=== PATIENT | female | born 1995 | race Hispanic/Latino ===

== ENCOUNTER 2018-05-15 09:48 | Emergency (ER) | payer OTHER ==
[~2018-05-15] VITALS: Ht 154.9 cm; Wt 61.2 kg
[2018-05-15 09:52] VITALS: BP 111/72
[2018-05-15] MEDS ORDERED: RA COUGH-COLD237 ML PO (10:28)
[2018-05-15] MEDS ORDERED: PREDNISONE20 M1 PO ×2 (10:28→11:30)
[2018-05-15] MEDS ORDERED: AMOXICILLIN500 M3 PO (10:28)
--- NOTE | 2018-05-15 10:29 | ED DYSPNEA/ASTHMA COMPLAINT ---
History of Present Illness General Chief Complaint: Wheezing/Asthma Stated Complaint: ASTHMA Source: patient, family, old records Exam Limitations: language barrier Vital Signs & Intake/Output Vital Signs & Intake/Output Vital Signs Date Time Temp Pulse Resp B/P B/P Pulse O2 O2 Flow FiO2 Mean Ox Delivery Rate 05/15 1034 98 05/15 0952 98.1 108 18 111/72 96 Room Air Room Air Allergies Coded Allergies: dicyclomine (From BENTYL) ("BECOMES DELERIOUS" 05/15/18) Reconcile Medications Guaifenesin/Dextromethorphan (Robitussin Fpjuo-Ftcki-Awzy Dm) 200 MG-10 MG CAPSULE 5-10 ML PO Q6P PRN cough Ibuprofen 600 MG TABLET 1 TAB PO Q6P PRN pain with food Prednisone 20 MG TABLET 1 TAB PO BID asthma Triage Note: TRIAGE: 22 Y/O FEMALE PRESENTS C/O ASTHMA SYMPTOMS SINCE THIS MORNING. USED INHALER WITHOUT RELIEF. SPO2 IN TRIAGE: 96%. HISTORY OF ASTHMA. ALSO USED AN OTC COUGH SYRUP. Triage Nurses Notes Reviewed? yes Onset: 2 days Duration: day(s):, continues in ED, getting worse Timing: recent history Severity: moderate Activities at Onset: rest Prior Episodes/Possible Cause: illness exposure, irritant gases exposure Modifying Factors: Improves With: rest. Worsens With: movement. Associated Symptoms: cough, wheezing, weakness LMP (ages 10-50): unknown : No Patient currently breastfeeds: No HPI: 2 days prior to admission patient complains of nasal congestion nonproductive cough progressive wheezing. She also complains of body aches sore throat loss of voice. She denies fever chills nausea vomiting diarrhea abdominal pain chest pain headache dysuria rash bleeding . Past History Travel History Traveled to [place] past 21 day No Medical History Any Pertinent Medical History? see below for history Respiratory: asthma Surgical History Surgical History: non-contributory Psychosocial History What is your primary language Irish Tobacco Use: Never used ETOH Use: denies use Illicit Drug Use: denies illicit drug use Family History Hx Contributory? No Review of Systems Review of Systems Constitutional: Reports: see HPI, malaise. EENTM: Reports: see HPI, nasal congestion, nasal pain, throat pain. Respiratory: Reports: see HPI, cough, short of breath, wheezing. Denies: sputum production. Cardiovascular: Reports: no symptoms. GI: Reports: no symptoms. Genitourinary: Reports: no symptoms. Musculoskeletal: Reports: see HPI, muscle pain. Skin: Reports: no symptoms. Neurological/Psychological: Reports: no symptoms. Hematologic/Endocrine: Reports: no symptoms. Immunologic/Allergic: Reports: no symptoms. All Other Systems: Reviewed and Negative Physical Exam Physical Exam General Appearance: well developed/nourished, alert, awake, anxious, mild distress Head: atraumatic, normal appearance, tenderness (frontal) Ears, Nose, Throat: normal pharynx, nasal congestion, pharyngeal erythema, moist mucus membranes Neck: normal inspection, supple, full range of motion, lymphadenopathy (R), lymphadenopathy (L) Respiratory: chest non-tender, no respiratory distress, decreased breath sounds, wheezing Cardiovascular: regular rate/rhythm, normal peripheral pulses, norml femoral pulses equa Peripheral Pulses: 4+ carotid (R), 4+ carotid (L) Gastrointestinal: normal bowel sounds, soft, non-tender, no organomegaly Extremities: normal inspection, normal capillary refill, normal range of motion Neurologic/Psych: no motor/sensory deficits, awake, alert, oriented x 3, normal gait, normal mood/affect, 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 No CVA/TIA Diagnosis No Sepsis Present: No Sepsis Focused Exam Completed? No Progress Differential Diagnosis: asthma, bronchitis, pneumonia Plan of Care: Current Medications Sig/Brianna Start time Last Medication Dose Stop Time Status Admin Albuterol Sulfate 3 ML ONCE ONE 05/15 1030 UNVr (Proventil) 05/15 103 Albuterol Sulfate 3 ML ONCE ONE 05/15 1030 UNVr (Proventil) 05/15 1031 Amoxicillin 500 MG ONCE ONE 05/15 1030 UNVr (Amoxil) 05/15 1031 Ibuprofen 600 MG ONCE ONE 05/15 1030 UNVr (Motrin) 05/15 1031 Oxymetazoline HCl 2 SPRAY ONCE ONE 05/15 1030 UNVr (Afrin) 05/15 1031 Prednisone 60 MG ONCE ONE 05/15 1030 UNVr 05/15 1031 Initial ED EKG: none Departure Departure Time of Disposition: 1100 Disposition: HOME OR SELF CARE Condition: Stable Clinical Impression Primary Impression: Asthma with acute exacerbation in adult Secondary Impressions: Bronchitis, Sinusitis Referrals: Patient Has No Primary Care Dr (PCP/Family) Departure Forms: Customer Survey General Discharge Information RELEASE- WORK Prescriptions: Current Visit Scripts Prednisone 1 TAB PO BID #10 TAB Guaifenesin/Dextromethorphan (Robitussin Nmjmt-Emmvf-Bfte Dm) 5-10 ML PO Q6P PRN cough #240 ML Ibuprofen 1 TAB PO Q6P PRN pain #50 TAB with food Critical Care Note Critical Care Note Critical Care Time: non-applicable
[2018-05-15] MEDS ORDERED: IBUPROFEN600 M1 PO (11:30)
[2018-05-15] MEDS ORDERED: ROBITUSSIN COU1 EACH PO (11:30)
== END 2018-05-15 11:42 ==
LOC: ERH 09:48
DX: J45.901 Unspecified asthma with (acute) exacerbation (principal); J32.9 Chronic sinusitis, unspecified
CPT/HCPCS: 1263